=== PATIENT | female | born 1990 | race Caucasian/White ===

== ENCOUNTER 2017-04-19 23:42 | Emergency (ER) | payer OTHER ==
[2017-04-20 00:03] VITALS: BP 144/98; PULSE 88; TEMP 98.3; BMI 36.4
--- NOTE | 2017-04-20 00:10 | PDOC ---
History of Present Illness - General History Source: Patient Exam Limitations: No Limitations - History of Present Illness Initial Comments: 04/20/17 02:04 Patient is a 27 year old female with no significant past medical history who presents to the ED with complaints of coughing that began 5 days ago. Patient reports experiencing sudden onset of coughing while at work 5 days ago with no signs of subsiding. She reports experiencing slight SOB secondary to coughing. Patient reports taking mucinex for cough with slight relief, but states she switched to tylenol when it stopped working. She reports having decreased appetite but is unsure if it is related to cough. Patient states she works in [employer] and is concerned the fumes are the cause of her symptoms. Patient states her last menstrual period was last month on the . Denies chest pain. Denies fever, chills. Denies nausea, vomiting. Denies contact with sick individual, out of state travel. Allergies: None Social history: No smoking. No alcohol. No illicit drugs. Surgical history: None PMD: None <Pawan Lott - Last Filed: 04/20/17 02:04> <Earline Marshall - Last Filed: 04/20/17 06:31> - General Chief Complaint: Pain Stated Complaint: COUGHING Time Seen by Provider: 04/20/17 00:00 Past History <Pawan Lott - Last Filed: 04/20/17 02:04> - Reproductive History Cervical CA: No Dysfunctional Uterine Bleeding: No Ectopic : No Endometrial CA: No Polycystic Ovaries: No Therapeutic (s) & number: No Tubal Ligation: No - Suicide/Smoking/Psychosocial Hx Smoking History: Never smoked Have you smoked in the past 12 months: No Information on smoking cessation initiated: No Hx Alcohol Use: No Drug/Substance Use Hx: No Substance Use Type: None <Earline Marshall - Last Filed: 04/20/17 06:31> - Past Medical History Allergies/Adverse Reactions: Allergies Allergy/AdvReac Type Severity Reaction Status Date / Time No Known Allergies Allergy Verified 04/20/17 00:02 Home Medications: Ambulatory Orders NK [No Known Home Medication] 02/19/16 Review of Systems - Review of Systems Able to Perform ROS?: Yes Comments:: 04/20/17 02:04 GENERAL/CONSTITUTIONAL: No fever or chills. No weakness. HEAD, EYES, EARS, NOSE AND THROAT: No change in vision. No ear pain or discharge. No sore throat. CARDIOVASCULAR: +SOB No chest pain RESPIRATORY: +Coughing No wheezing, or hemoptysis. GASTROINTESTINAL: No nausea, vomiting, diarrhea or constipation. GENITOURINARY: No dysuria, frequency, or change in urination. MUSCULOSKELETAL: No joint or muscle swelling or pain. No neck or back pain. SKIN: No rash NEUROLOGIC: No headache, vertigo, loss of consciousness, or change in strength/ sensation. ENDOCRINE: No increased thirst. No abnormal weight change. HEMATOLOGIC/LYMPHATIC: No anemia, easy bleeding, or history of blood clots. ALLERGIC/IMMUNOLOGIC: No hives or skin allergy. All Other Systems: Reviewed and Negative <Pawan Lott - Last Filed: 04/20/17 02:04> *Physical Exam - Vital Signs Last Vital Signs Temp Pulse Resp BP Pulse Ox 98.3 F 88 14 144/98 100 04/20/17 00:02 04/20/17 00:02 04/20/17 00:02 04/20/17 00:02 04/20/17 00:02 - Physical Exam Comments: 04/20/17 02:04 GENERAL: Awake, alert, and fully oriented, in no acute distress HEAD: No signs of trauma EYES: PERRLA, EOMI, sclera anicteric, conjunctiva clear ENT: Auricles normal inspection, hearing grossly normal, nares patent, oropharynx clear without exudates. Moist mucosa NECK: Normal ROM, supple, no lymphadenopathy, JVD, or masses LUNGS: Breath sounds equal, clear to auscultation bilaterally. No wheezes, and no crackles HEART: Regular rate and rhythm, normal S1 and S2, no murmurs, rubs or gallops ABDOMEN: Soft, nontender, normoactive bowel sounds. No guarding, no rebound. No masses EXTREMITIES: Normal range of motion, no edema. No clubbing or cyanosis. No cords, erythema, or tenderness NEUROLOGICAL: Cranial nerves II through XII grossly intact. Normal speech, normal gait SKIN: Warm, Dry, normal turgor, no rashes or lesions noted. <Pawan Lott - Last Filed: 04/20/17 02:04> - Vital Signs Last Vital Signs Temp Pulse Resp BP Pulse Ox 98.3 F 88 14 144/98 100 04/20/17 00:02 04/20/17 00:02 04/20/17 00:02 04/20/17 00:02 04/20/17 00:02 <Earline Marshall - Last Filed: 04/20/17 06:31> ED Treatment Course - LABORATORY CBC & Chemistry Diagram: 04/20/17 00:29 04/20/17 00:29 - ADDITIONAL ORDERS Additional order review: Laboratory Results 04/20/17 12 00:29 00:29 Sodium 139 Potassium 4.1 Chloride 106 Carbon Dioxide 26 Anion Gap 7 L BUN 11 Creatinine 0.7 Creat Clearance w eGFR > 60 Random Glucose 94 Calcium 8.9 Total Bilirubin 0.4 AST 19 D ALT 25 D Alkaline Phosphatase 55 Total Protein 7.9 Albumin 3.8 Urine Color Yellow Urine Appearance Cloudy Urine pH 5.0 Ur Specific [place] 1.018 Urine Protein Negative Urine Glucose (UA) Negative Urine Ketones Negative Urine Blood Negative Urine Nitrite Negative Urine Bilirubin Negative Urine Urobilinogen Negative Urine HCG, Qual Negative 04/20/17 00:29 RBC 4.16 MCV 89.9 MCHC 33.0 RDW 14.1 MPV 10.0 Neutrophils % 53.1 Lymphocytes % 35.0 D Monocytes % 7.5 Eosinophils % 3.3 Basophils % 1.1 - Medications Given in the ED: ED Medications Discontinued Medications Generic Name Dose Route Start Last Admin Trade Name Kenq PRN Reason Stop Dose Admin Sodium Chloride 1,000 ml 04/20/17 00:11 04/20/17 00:32 Normal Saline - IV 04/20/17 00:12 1,000 ml ONCE ONE Administration <Pawan Lott - Last Filed: 04/20/17 02:04> - LABORATORY CBC & Chemistry Diagram: 04/20/17 00:29 04/20/17 00:29 <Earline Marshall - Last Filed: 04/20/17 06:31> Medical Decision Making - Medical Decision Making 04/20/17 06:30 Pt with cough; labs normal; feeling better with meds in the ER, 04/20/17 06:31 CXR normal <Earline Marshall - Last Filed: 04/20/17 06:31> *DC/Admit/Observation/Transfer - Attestations Scribe Attestion: 04/20/17 02:05 Documentation prepared by Pawan Lott, acting as medical reception specialist for Earline Marshall MD/DO. <Pawan Lott - Last Filed: 04/20/17 02:04> - Discharge Dispostion Admit: No <Earline Marshall - Last Filed: 04/20/17 06:31> Diagnosis at time of Disposition: Viral illness - Discharge Dispostion Disposition: HOME Condition at time of disposition: Stable - Patient Instructions Printed Discharge Instructions: DI for Viral Upper Respiratory Infection -- Adult
[2017-04-20] MEDS ORDERED: SODIUM CHLORIDE 0.9% 500 ML INFUS.BAG IV ONE (00:11)
[2017-04-20 00:42] LABS: BASOPHIL 1.1 % (0-2.0); EOSINOPHIL 3.3 % (0-4.5); MCH 29.7 pg (25.7-33.7); MEAN CELL VOLUME 89.9 fl (80-96); NEUTROPHILS 53.1 % (42.8-82.8); PLATELET COUNT 244 K/MM3 (134-434); RDW 14.1 % (11.6-15.6); WHITE BLOOD COUNT 7.4 K/mm3 (4.0-10.0)
[2017-04-20 00:45] LABS: URINE APPEARANCE CLOUDY; URINE BILIRUBIN NEGATIVE (NEGATIVE); URINE BLOOD NEGATIVE (NEGATIVE); URINE COLOR YELLOW; URINE GLUCOSE (UA) NEGATIVE (NEGATIVE); URINE KETONE NEGATIVE (NEGATIVE); URINE LEUK ESTERASE NEGATIVE (NEGATIVE); URINE NITRITE NEGATIVE (NEGATIVE); URINE PROTEIN NEGATIVE (NEGATIVE); URINE UROBILINOGEN NEGATIVE mg/dL (0.2-1.0)
[2017-04-20 01:09] LABS: ALBUMIN 3.8 g/dl (3.4-5.0); ANION GAP 7 (8-16); CALCIUM 8.9 mg/dL (8.5-10.1); CO2 26 mmol/L (21-32); CREATININE 0.7 mg/dL (0.55-1.02); GLUCOSE,RANDOM 94 mg/dL (74-106); SGPT/ALT 25 U/L (12-78)
[2017-04-20 01:11] LABS: ALK PHOS 55 U/L (45-117); BILIRUBIN,TOTAL 0.4 mg/dL (0.2-1.0); TOT PROT 7.9 g/dl (6.4-8.2)
[2017-04-20 01:17] LABS: SGOT/AST 19 U/L (15-37)
[2017-04-20 11:00] LABS: URINE LEUK ESTERASE Negative (NEGATIVE)
== END 2017-04-20 02:32 | disposition home or self-care (01) ==
LOC: JER 23:42
DX: J06.9 Acute upper respiratory infection, unspecified (principal); B97.89 Other viral agents as the cause of diseases classified elsewhere
CPT/HCPCS: 36415; 71020-TC; 80053; 81003; 84703; 85025; 99282-25

== ENCOUNTER 2019-07-01 21:56 | Emergency (ER) | payer OTHER ==
[2019-07-01 22:20] VITALS: BP 139/76; PULSE 90; TEMP 98.2; BMI 40.6
--- NOTE | 2019-07-01 22:32 | PDOC ---
History of Present Illness - General Chief Complaint: Pain, Acute Stated Complaint: ABD PAIN Time Seen by Provider: 07/01/19 22:31 - History of Present Illness Initial Comments: 07/01/19 22:42 28 yo F PMH NIDDM, s/p L oopherectomy/salpingectomy 2/2 ectopic , presenting with suprapubic abdominal pain. Reports that for the past week, she has had dysuria and constipation (reportedly 0 bowel movements for the past week). Took 500mg of amoxicillin and 500mg of ampicillin yesterday morning from her mother and took ibuprofen yesterday, with some relief. Denies CP, SOB, ELENA, N/V, fevers/chills. Past History - Past Medical History Allergies/Adverse Reactions: Allergies Allergy/AdvReac Type Severity Reaction Status Date / Time No Known Allergies Allergy Verified 07/01/19 22:20 Home Medications: Ambulatory Orders NK [No Known Home Medication] 02/19/16 COPD: Yes - Reproductive History Cervical CA: No Dysfunctional Uterine Bleeding: No Ectopic : No Endometrial CA: No Polycystic Ovaries: No Therapeutic (s) & number: No Tubal Ligation: No - Psycho Social/Smoking Cessation Hx Smoking History: Never smoked Have you smoked in the past 12 months: No Information on smoking cessation initiated: No Hx Alcohol Use: No Drug/Substance Use Hx: No Substance Use Type: None Review of Systems - Review of Systems Comments:: 07/01/19 23:11 GENERAL/CONSTITUTIONAL: denies fever, chills, diaphoresis, generalized weakness, malaise, loss of appetite, weight change HEAD, EYES, EARS, NOSE AND THROAT: denies rhinorrhea, nasal congestion, throat pain, throat swelling, difficulty swallowing, mouth swelling, ear pain, eye pain, visual changes NEUROLOGIC: denies headache, focal weakness or paresthesias, dizziness, unsteady gait, seizure, mental status changes, bladder or bowel incontinence CARDIOVASCULAR: denies chest pain, syncope, palpitations, irregular heart rate, lightheadedness, peripheral edema RESPIRATORY: denies cough, shortness of breath, dyspnea with exertion, orthopnea, wheezing, stridor, hemoptysis GASTROINTESTINAL: endorses constipation. Denies abdominal pain, abdominal distension, nausea, vomiting, diarrhea, melena, hematochezia GENITOURINARY: endorses dysuria. Denies frequency, urgency, hematuria, flank pain, genital pain MUSCULOSKELETAL: denies myalgia, arthralgia, joint swelling, back pain, neck pain SKIN: denies rash, itching, pallor HEMATOLOGIC/IMMUNOLOGIC: denies easy bleeding, easy bruising, lymphadenopathy, frequent infections ENDOCRINE: denies unexplained weight gain, unexplained weight loss, heat intolerance, cold intolerance PSYCHIATRIC: denies anxiety, depression, suicidal or homicidal ideation, hallucinations *Physical Exam - Vital Signs Last Vital Signs Temp Pulse Resp BP Pulse Ox 98.2 F 90 17 139/76 100 07/01/19 22:14 07/01/19 22:14 07/01/19 22:14 07/01/19 22:14 07/01/19 22:14 - Physical Exam 07/01/19 23:12 Gen: well-developed, well-nourished, NAD Neuro: AAOX4, CN II-XII intact, FTN intact, EOMI, PERRLA, 5/5 strength, SILT HEENT: atraumatic, normocephalic Neck: trachea midline, supple CV: regular rate, regular rhythm, no murmurs, rubs, or gallops Pulm: CTA b/l, no wheezing Abd: soft, non-distended, suprapubic tenderness : clear discharge, no blood, no CMT or adnexal tenderness MSK: full ROM, intact pulses Extr: no edema, no deformities Skin: warm, dry ED Treatment Course - LABORATORY CBC & Chemistry Diagram: 07/01/19 23:09 07/01/19 23:09 Medical Decision Making - Medical Decision Making 07/01/19 22:57 Concern for possible UTI v endometriosis v fibroids. Low likely pyelo considering lack of CVA tenderness or fever. - CBC, CMP - UA/UC/u preg - Ofirmev 07/01/19 23:38 UA unremarkable, no UTI. 07/01/19 23:55 Urine negative. Will get TVUS. 07/02/19 01:39 TVUS with three L adnexal cysts: simple cyst w/ questionable septations (4.7 X 5.6 X 3.5), complex, possibly hemorrhagic cyst (3.8 X 6.2 X 4.6), complex possibly hemorrhagic cyst (4.3 X 6.0 X 4.9) with positive Doppler flow. Will dc with close OBGYN follow up, r/o underlying neoplasm. R ovary not visualized. Discharge - Discharge Information Problems reviewed: Yes Clinical Impression/Diagnosis: Adnexal cyst, Abdominal pain Condition: Improved Disposition: HOME - Admission No - Follow up/Referral Referrals: Juan Gomez MD [Staff Physician] - Evelyn Costello MD [Staff Physician] - - Patient Discharge Instructions Patient Printed Discharge Instructions: DI for Ovarian Cyst Additional Instructions: You were seen with abdominal pain. You were found to have multiple cysts in your left ovary which require very close follow-up within one week. The referral numbers for two other OBGYN doctors are included; reach out if needed to get an earlier appointment. Take ibuprofen/acetaminophen as needed for pain. Return to the ED if you develop worsening symptoms. - Post Discharge Activity
[2019-07-01] MEDS ORDERED: ACETAMINOPHEN 1000 MG/100 ML VIAL (NON FORMULARY) IVPB ONE (22:42)
[2019-07-01] MEDS ORDERED: ACETAMINOPHEN INJECTION 100 ML IVPB ONE (22:49)
[2019-07-01 23:35] LABS: BASO % 1.1 % (0-2.0); EOS % 2.4 % (0-4.5); HEMATOCRIT 38.6 % (32.4-45.2); HEMOGLOBIN 12.7 GM/dL (10.7-15.3); LYMPH % 36.1 % (8-40); MEAN CELL VOLUME 90.8 fl (80-96); MEAN PLT VOLUME 9.7 fl (7.5-11.1); NEUT % 52.4 % (42.8-82.8); PLATELET COUNT 309 K/MM3 (134-434); RBC 4.25 M/mm3 (3.60-5.2); RDW 13.9 % (11.6-15.6); WHITE BLOOD COUNT 7.5 K/mm3 (4.0-10.0)
[2019-07-01 23:36] LABS: URINE APPEARANCE Clear; URINE BILIRUBIN Negative (NEGATIVE); URINE COLOR Yellow; URINE GLUCOSE (UA) Negative (NEGATIVE); URINE KETONE Negative (NEGATIVE); URINE LEUK ESTERASE Negative (NEGATIVE); URINE NITRITE Negative (NEGATIVE); URINE PROTEIN Negative (NEGATIVE); URINE UROBILINOGEN 0.2 mg/dL (0.2-1.0)
[2019-07-01 23:56] LABS: ALBUMIN 3.7 g/dl (3.4-5.0); BILIRUBIN,TOTAL 0.3 mg/dL (0.2-1); BLOOD UREA NITROGEN 10.2 mg/dL (7-18); CALCIUM 8.9 mg/dL (8.5-10.1); CREATININE 0.9 mg/dL (0.55-1.3); POTASSIUM 4.3 mmol/L (3.5-5.1); TOT PROT 8.4 g/dl (6.4-8.2)
--- NOTE | 2019-07-01 23:58 | PDOC ---
Attending Attestation - Resident Resident Name: Sarthak Velasquez - ED Attending Attestation I have performed the following: I have examined & evaluated the patient, The case was reviewed & discussed with the resident, I agree w/resident's findings & plan, Exceptions are as noted - HPI HPI: 07/01/19 23:58 See resident HPI - Physicial Exam PE: 07/01/19 23:58 Agree with documented exam - Medical Decision Making 07/01/19 23:59 28F DM, s/p L salpingo-oopherectomy 2/2 ectopic here with 1 week of lower abd px a/w dysuria, decreased bm in context of decreased po f/u labs dispo per clinical course UA w/o derangement TVUS with multiple, large complex cysts, good vascular flow of R ovary Pt is s/p L salpingo-oopherectomy 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
== END 2019-07-02 02:22 | disposition home or self-care (01) ==
LOC: JER 21:56
DX: N83.201 Unspecified ovarian cyst, right side (principal); Z90.79 Acquired absence of other genital organ(s); Z90.721 Acquired absence of ovaries, unilateral
CPT/HCPCS: 36415; 76830-TC; 80053; 81003; 84703; 85025; 99285-25; J0131

== ENCOUNTER 2021-06-16 02:47 | Emergency (ER) | payer OTHER ==
[2021-06-16 03:13] VITALS: PULSE 83; BMI 31.4
[2021-06-16] MEDS ORDERED: SODIUM CHLORIDE 0.9% 500 ML INFUS.BAG IV ONE (04:14)
[2021-06-16] MEDS ORDERED: ACETAMINOPHEN 1000 MG/100 ML BAG IVPB ONE (04:14)
[2021-06-16] MEDS ORDERED: ACETAMINOPHEN INJECTION 100 ML IVPB ONE (04:20)
[2021-06-16 04:58] LABS: BASO % 0.6 % (0-2.0); EOS % 0.7 % (0-4.5); HEMATOCRIT 38.1 % (32.4-45.2); HEMOGLOBIN 12.8 GM/dL (10.7-15.3); LYMPH % 14.6 % (8-40); MCHC 33.5 g/dl (32.0-36.0); MEAN CELL VOLUME 89.5 fl (80-96); MEAN PLT VOLUME 9.3 fl (7.5-11.1); MONO % 6.8 % (3.8-10.2); NEUT % 77.3 % (42.8-82.8); PLATELET COUNT 311 10^3/uL (134-434); RBC 4.26 M/mm3 (3.60-5.2); RDW 14.5 % (11.6-15.6); WHITE BLOOD COUNT 10.2 K/mm3 (4.0-10.0)
[2021-06-16 05:10] LABS: CALCIUM 9.5 mg/dL (8.5-10.1)
[2021-06-16 05:11] LABS: ALBUMIN 4.3 g/dl (3.4-5.0); BLOOD UREA NITROGEN 13.4 mg/dL (7-18)
[2021-06-16] MEDS ORDERED: morphine CARPU-JECT 4 MG/1 ML DISP.SYRIN IVPUSH ONE (05:12)
[2021-06-16 05:14] LABS: CREATININE 0.9 mg/dL (0.55-1.3)
[2021-06-16 05:16] LABS: BILIRUBIN,TOTAL 0.4 mg/dL (0.2-1); TOT PROT 8.9 g/dl (6.4-8.2)
[2021-06-16] MEDS ORDERED: morphine SULFATE 4 MG/ML VIAL ONE (05:36)
[2021-06-16 05:48] VITALS: TEMP 98.8
[2021-06-16 06:06] LABS: PH,URINE 5.5 (5.0-8.0); URINE APPEARANCE CLOUDY; URINE BILIRUBIN NEGATIVE (NEGATIVE); URINE COLOR YELLOW; URINE GLUCOSE (UA) NEGATIVE (NEGATIVE); URINE KETONE NEGATIVE (NEGATIVE); URINE LEUK ESTERASE NEGATIVE (NEGATIVE); URINE NITRITE NEGATIVE (NEGATIVE); URINE PROTEIN NEGATIVE (NEGATIVE); URINE UROBILINOGEN 0.2 mg/dL (0.2-1.0)
[2021-06-16 08:08] VITALS: BP 144/93
== END 2021-06-16 07:53 | disposition home or self-care (01) ==
LOC: JER 02:47
PROC: 3E033NZ Introduction of Analgesics, Hypnotics, Sedatives into Peripheral Vein, Percutaneous Approach (ICD-10-PCS; principal; 2021-06-16)
PROC: 3E033GC Introduction of Other Therapeutic Substance into Peripheral Vein, Percutaneous Approach (ICD-10-PCS; 2021-06-16)
DX: S82.841A Displaced bimalleolar fracture of right lower leg, initial encounter for closed fracture (principal); R55 Syncope and collapse
CPT/HCPCS: 36415; 70450-TC; 73610-TC-RT-FY; 73630-TC-RT-FY; 80053; 81003; 84484; 84703; 85025; 87086; 93005; 93010; 96374; 96375; 99285-25

== ENCOUNTER 2021-06-28 05:58 | Day surgery (SDC) | payer OTHER ==
[2021-06-26 13:14] VITALS: BMI 31.6
[2021-06-28] MEDS ORDERED: MIDAZOLAM HCL 2 MG/2 ML SINGLE DOSE VIAL ONE ×2 (07:18→07:59)
[2021-06-28] MEDS ORDERED: ROPIVACAINE HCL/PF 100 MG/20 ML VIAL ONE (07:41)
[2021-06-28] MEDS ORDERED: BUPIVACAINE HCL 50 ML ONE (07:42)
[2021-06-28] MEDS ORDERED: SUCCINYLCHOLINE CHLORIDE 200 MG/10 ML SYRINGE ONE (07:59)
[2021-06-28] MEDS ORDERED: PROPOFOL 20 ML ONE ×3 (07:59→09:40)
[2021-06-28] MEDS ORDERED: DEXAMETHASONE SOD PHOSPHATE 4 MG/1 ML VIAL ONE (08:10)
[2021-06-28] MEDS ORDERED: ceFAZolin SODIUM 1 GM VIAL ONE (08:10)
[2021-06-28] MEDS ORDERED: TRANEXAMIC ACID 1000 MG/10 ML VIAL ONE (08:10)
[2021-06-28] MEDS ORDERED: ONDANSETRON 4 MG/2 ML VIAL ONE (08:10)
[2021-06-28] MEDS ORDERED: KETOROLAC TROMETHAMINE 30 MG/1 ML VIAL ONE (08:10)
[2021-06-28] MEDS ORDERED: PROMETHAZINE HCL 25 MG/1 ML VIAL IVPUSH PRN (10:02)
[2021-06-28] MEDS ORDERED: ONDANSETRON 4 MG/2 ML VIAL IVPUSH PRN (10:02)
[2021-06-28] MEDS ORDERED: oxyCODONE HCL 5 MG TABLET PO PRN ×2 (10:02)
[2021-06-28] MEDS ORDERED: ACETAMINOPHEN INJECTION 100 ML IVPB ONE (10:37)
[2021-06-28] MEDS ORDERED: ACETAMINOPHEN 1000 MG/100 ML BAG IVPB ONE (10:46)
[2021-06-28 12:33] VITALS: TEMP 98.7
[2021-06-28 12:40] VITALS: BP 123/72; PULSE 80
== END 2021-06-28 12:50 | disposition home or self-care (01) ==
LOC: FASU 05:58
PROVIDERS: ATTEND Orthopaedic Surgery Sports Medicine
PROC: 0QSG04Z Reposition Right Tibia with Internal Fixation Device, Open Approach (ICD-10-PCS; 2021-06-28)
PROC: 0QSJ04Z Reposition Right Fibula with Internal Fixation Device, Open Approach (ICD-10-PCS; principal; 2021-06-28 08:27)
DX: S82.841A Displaced bimalleolar fracture of right lower leg, initial encounter for closed fracture (principal); X58.XXXA Exposure to other specified factors, initial encounter; Y93.9 Activity, unspecified; Y92.9 Unspecified place or not applicable
CPT/HCPCS: 73610-TC-RT-FY; 73630-TC-RT-FY; 81025; 94760

== ENCOUNTER 2021-12-08 17:43 | Emergency (ER) | payer OTHER ==
[2021-12-08 17:48] VITALS: BP 119/67; PULSE 81; RESP 20; TEMP 98.6; BMI 31.6
[2021-12-08] MEDS ORDERED: SODIUM CHLORIDE 1,000 ML IV STA (18:10)
[2021-12-08] MEDS ORDERED: ACETAMINOPHEN 500 MG TABLET (FP) PO ONE (18:10)
[2021-12-08] MEDS ORDERED: ACETAMINOPHEN 500 MG TABLET (FP) ONE (18:29)
[2021-12-08 18:50] LABS: HCG,QUALITATIVE URINE Positive
[2021-12-08 18:51] LABS: BASO % 0.7 % (0-2.0); HEMATOCRIT 36.4 % (32.4-45.2); LYMPH % 30.5 % (8-40); MCH 29.9 pg (25.7-33.7); MCHC 33.1 g/dl (32.0-36.0); MEAN CELL VOLUME 90.4 fl (80-96); MEAN PLT VOLUME 9.3 fl (7.5-11.1); MONO % 9.9 % (3.8-10.2); NEUT % 57.9 % (42.8-82.8); PLATELET COUNT 325 10^3/uL (134-434); RBC 4.03 M/mm3 (3.60-5.2); RDW 13.9 % (11.6-15.6); WHITE BLOOD COUNT 6.2 K/mm3 (4.0-10.0)
[2021-12-08 18:54] LABS: EPI CELLS 5 /uL (0-25.1); HYALINE CASTS 0 /uL (0-3.1); PH,URINE 6.5 (5.0-8.0); URINE APPEARANCE CLEAR; URINE BACTERIA 310 /uL (0-1359); URINE BILIRUBIN NEGATIVE (NEGATIVE); URINE COLOR YELLOW; URINE GLUCOSE (UA) NEGATIVE (NEGATIVE); URINE KETONE NEGATIVE (NEGATIVE); URINE LEUK ESTERASE NEGATIVE (NEGATIVE); URINE NITRITE NEGATIVE (NEGATIVE); URINE PROTEIN NEGATIVE (NEGATIVE); URINE UROBILINOGEN 0.2 mg/dL (0.2-1.0); URINE WBC 2 /uL (0-25.8)
[2021-12-08 19:20] LABS: CALCIUM 8.9 mg/dL (8.5-10.1)
[2021-12-08 19:21] LABS: ALBUMIN 3.7 g/dl (3.4-5.0); BLOOD UREA NITROGEN 7.1 mg/dL (7-18)
[2021-12-08 19:23] LABS: CREATININE 0.7 mg/dL (0.55-1.3)
[2021-12-08 19:25] LABS: BILIRUBIN,TOTAL 0.2 mg/dL (0.2-1); TOT PROT 7.9 g/dl (6.4-8.2)
[2021-12-08 20:11] LABS: URINE RBC 19.5 /uL (0-23.9)
== END 2021-12-08 21:01 | disposition home or self-care (01) ==
LOC: JER 17:43
PROC: 3E0337Z Introduction of Electrolytic and Water Balance Substance into Peripheral Vein, Percutaneous Approach (ICD-10-PCS; principal; 2021-12-08)
DX: N83.291 Other ovarian cyst, right side (principal); R82.71 Bacteriuria
CPT/HCPCS: 36415; 76817-TC; 80053; 81003; 84702; 84703; 85025; 86850; 86900; 86901; 87086; 99284-25

== ENCOUNTER 2022-05-09 20:12 | Emergency (ER) | payer OTHER ==
[2022-05-09 20:21] VITALS: BMI 33.5
[2022-05-09] MEDS ORDERED: ACETAMINOPHEN 1000 MG/100 ML BAG IVPB ONE (21:45)
[2022-05-09 22:50] LABS: BASO % 0.4 % (0-2.0); EOS % 0.3 % (0-4.5); HEMATOCRIT 30.4 % (32.4-45.2); HEMOGLOBIN 10.3 GM/dL (10.7-15.3); LYMPH % 9.3 % (8-40); MCH 31.3 pg (25.7-33.7); MEAN CELL VOLUME 92.2 fl (80-96); MEAN PLT VOLUME 9.6 fl (7.5-11.1); MONO % 16.1 % (3.8-10.2); NEUT % 73.9 % (42.8-82.8); PLATELET COUNT 188 10^3/uL (134-434); RDW 13.2 % (11.6-15.6)
[2022-05-09] MEDS ORDERED: ACETAMINOPHEN INJECTION 100 ML IVPB ONE (23:05)
[2022-05-09 23:08] LABS: CALCIUM 8.5 mg/dL (8.5-10.1)
[2022-05-09 23:09] LABS: ALBUMIN 2.9 g/dl (3.4-5.0); BLOOD UREA NITROGEN 4.8 mg/dL (7-18)
[2022-05-09] MEDS ORDERED: LACTATED RINGERS SOLUTION 1000 ML INFUS.BAG IV ONE (23:09)
[2022-05-09 23:12] LABS: CREATININE 0.5 mg/dL (0.55-1.3)
[2022-05-09 23:13] LABS: TOT PROT 6.9 g/dl (6.4-8.2)
[2022-05-09 23:14] LABS: BILIRUBIN,TOTAL 0.4 mg/dL (0.2-1)
[2022-05-09 23:54] LABS: INR 1.03 (0.83-1.09); PROTHROMBIN TIME (PATIENT) 11.9 SEC (9.7-13.0)
[2022-05-09 23:57] LABS: ACTIVATED PTT 28.9 SECONDS (25.2-36.5)
[2022-05-10 00:35] LABS: EPI CELLS 29 /uL (0-25.1); HYALINE CASTS 2 /uL (0-3.1); URINE APPEARANCE CLEAR; URINE BACTERIA 299 /uL (0-1359); URINE BILIRUBIN NEGATIVE (NEGATIVE); URINE COLOR YELLOW; URINE GLUCOSE (UA) NEGATIVE (NEGATIVE); URINE KETONE 3+ (NEGATIVE); URINE LEUK ESTERASE NEGATIVE (NEGATIVE); URINE NITRITE NEGATIVE (NEGATIVE); URINE PROTEIN 1+ (NEGATIVE); URINE RBC 15 /uL (0-23.9); URINE UROBILINOGEN 0.2 mg/dL (0.2-1.0); URINE WBC 9 /uL (0-25.8)
[2022-05-10] MEDS ORDERED: SODIUM CHLORIDE 0.9% 500 ML INFUS.BAG IV ONE (00:58)
[2022-05-10 01:17] VITALS: BP 118/71; PULSE 102; TEMP 98.5
[2022-05-10 02:22] VITALS: RESP 20
== END 2022-05-10 03:00 | disposition home or self-care (01) ==
LOC: JER 20:12
PROC: 3E033GC Introduction of Other Therapeutic Substance into Peripheral Vein, Percutaneous Approach (ICD-10-PCS; principal; 2022-05-09)
DX: O98.513 Other viral diseases complicating pregnancy, third trimester (principal); J09.X2 Influenza due to identified novel influenza A virus with other respiratory manifestations; Z3A.29 29 weeks gestation of pregnancy
CPT/HCPCS: 0241U-QW; 36415; 76815-TC; 80053; 81003; 83605; 83690; 84484; 85025; 85610; 85730; 86850; 86900; 86901; 87040; 87086; 93005; 93010; 99285-25

== ENCOUNTER 2023-04-10 12:42 | Emergency (ER) | payer OTHER ==
[2023-04-10 12:58] VITALS: BP 126/75; PULSE 75; RESP 18; TEMP 99; BMI 34.7
[2023-04-10] MEDS ORDERED: SODIUM CHLORIDE 0.9% 500 ML INFUS.BAG IV ONE (14:09)
[2023-04-10 14:24] LABS: INR 1.1 (0.83-1.09); PROTHROMBIN TIME (PATIENT) 12.7 SEC (9.7-13.0)
[2023-04-10 14:31] LABS: BASO % 1.4 % (0-2.0); EOS % 2.3 % (0-4.5); HEMATOCRIT 44.4 % (32.4-45.2); HEMOGLOBIN 14.4 GM/dL (10.7-15.3); LYMPH % 45.4 % (8-40); MCH 29.5 pg (25.7-33.7); MCHC 32.6 g/dl (32.0-36.0); MEAN CELL VOLUME 90.6 fl (80-96); MEAN PLT VOLUME 9.8 fl (7.5-11.1); MONO % 7.3 % (3.8-10.2); NEUT % 43.6 % (42.8-82.8); PLATELET COUNT 325 10^3/uL (134-434); RDW 14.7 % (11.6-15.6); WHITE BLOOD COUNT 4.3 K/mm3 (4.0-10.0)
[2023-04-10 14:32] LABS: POTASSIUM 4.3 mmol/L (3.5-5.1)
[2023-04-10 14:32] LABS: URINE APPEARANCE CLEAR; URINE BILIRUBIN NEGATIVE (NEGATIVE); URINE COLOR YELLOW; URINE GLUCOSE (UA) NEGATIVE (NEGATIVE); URINE KETONE NEGATIVE (NEGATIVE); URINE LEUK ESTERASE NEGATIVE (NEGATIVE); URINE NITRITE NEGATIVE (NEGATIVE); URINE PROTEIN NEGATIVE (NEGATIVE); URINE UROBILINOGEN 0.2 mg/dL (0.2-1.0)
[2023-04-10 14:33] LABS: CALCIUM 9.3 mg/dL (8.5-10.1)
[2023-04-10 14:35] LABS: ALBUMIN 4.1 g/dl (3.4-5.0); BLOOD UREA NITROGEN 9.6 mg/dL (7-18); MAGNESIUM 2.2 mg/dL (1.8-2.4)
[2023-04-10 14:38] LABS: BILIRUBIN,TOTAL 0.9 mg/dL (0.2-1); PHOSPHOROUS 3.7 mg/dL (2.5-4.9)
[2023-04-10 14:51] LABS: CREATININE 0.8 mg/dL (0.55-1.3)
[2023-04-10] MEDS ORDERED: FAMOTIDINE 20 MG TABLET PO ONE (15:06)
[2023-04-10] MEDS ORDERED: ONDANSETRON 4 MG TABLET PO ONE ×2 (15:06→15:32)
[2023-04-10] MEDS ORDERED: MAG HYDROX/AL HYDROX/SIMETH 30 ML UNIT-DOSE CUP PO ONE (15:06)
[2023-04-10] MEDS ORDERED: FAMOTIDINE 20 MG TABLET ONE (15:32)
[2023-04-10] MEDS ORDERED: MAG HYDROX/AL HYDROX/SIMETH 30 ML UNIT-DOSE CUP ONE (15:32)
== END 2023-04-10 16:03 | disposition home or self-care (01) ==
LOC: JER 12:42
DX: R42 Dizziness and giddiness (principal); R00.2 Palpitations; R61 Generalized hyperhidrosis; R51.9 Headache, unspecified; Z20.822 Contact with and (suspected) exposure to COVID-19
CPT/HCPCS: 0241U-QW; 36415; 71046-TC-FY; 80053; 81003; 83735; 84100; 84439; 84443; 84484; 84702; 85025; 85610; 85730; 93005; 93010; 99285-25